=== PATIENT | male | born 1970 | race Caucasian/White ===

== ENCOUNTER 2019-09-29 00:42 | Outpatient (CLI) | payer OTHER, SELFPAY ==
[2019-09-29 16:39] LABS: SARS-CoV-2 RNA PCR Negative
== END 2019-09-29 00:43 | disposition home or self-care (01) ==
LOC: ANHCOVIDDT 00:42
PROVIDERS: PCP Family Medicine; Visit Provider Internal Medicine Gastroenterology
DX: Z01.812 Encounter for preprocedural laboratory examination (principal); Z20.828 Contact with and (suspected) exposure to other viral communicable diseases
CPT/HCPCS: 87635; C9803; U0003

== ENCOUNTER 2019-10-02 00:31 | Day surgery (SDC) | payer OTHER, SELFPAY ==
[2019-09-24 12:27] VITALS: BMI 32.2
[2019-10-02 07:18] VITALS: BP 151/100; PULSE 100; RESP 18; TEMP 37.2; O2SAT 95
[2019-10-02] MEDS: LACTATED RINGERS 1,000 ML 150 ML IV CONT (07:28)
--- NOTE | 2019-10-02 07:47 | WPDANESEPPF ---
Anes - Initial Pre Proc Eval Procedure: Operation Date: 10/02/19 08:30 Proposed Procedures p Screening Colonoscopy - Holden Prakash MD Date/Time: 10/02/19 07:47 Surgeon: Holden Prakash MD Pre Op Diagnosis: Neoplasm Screening Patient Data Age: 49 Gender: M Height: 6 ft 2 in Weight: 111.4 kg Last Vital Signs Temp 98.9 F 10/02/19 07:18 Pulse 100 10/02/19 07:18 Resp 18 10/02/19 07:18 BP 151/100 H 10/02/19 07:18 Pulse Ox 95 10/02/19 07:18 Allergies Allergy/AdvReac Type Severity Reaction Status Date / Time No Known Allergies Allergy Mild Verified 10/02/19 07:17 Home Medications Medication Instructions Recorded Confirmed Type losartan 100 mg tablet 100 mg PO DAILY #90 tablet 09/10/19 09/24/19 Rx amlodipine 5 mg tablet 5 mg PO DAILY #90 tablet 09/12/19 09/24/19 Rx peg 3350-electrolytes 236 240 ml PO Q10M #4000 ml 09/27/19 Rx gram-22.74 gram-6.74 gram-5.86 gram solution Patient hx anesthesia problems: none Family hx anesthesia problems: none PMFSH Past Medical History Medical History (Updated 10/02/19 @ 07:47 by Bert Martin MD) Essential hypertension Hyperlipidemia Family History Family History (Updated 11/21/15 @ 23:19 by DOCTOR UNKNOWN) Sibling Family history of suicide Mother Family history of diabetes mellitus in first degree relative Social History Social History Smoking status: Never smoker Alcohol intake: current Anes - Eval Final PreProcedure Day of Procedure 10/02/19 07:47 Patient weight: overweight Heart: regular rate and rhythm Lungs: clear to auscultation Airway: Mallampati scale class II Neurological: alert and oriented Last oral intake: >/= 8 hours ASA classification: II Emergent: no Anesthetic plan: proceed Anesthesia type and monitoring: general GIVS and standard monitoring Informed Consent: The patient's anesthetic plan and its attendant risks and benefits were discussed with the patient/family/POA. Questions were solicited and answers provided to the satisfaction of the patient/family/POA.
--- NOTE | 2019-10-02 08:31 | PM.HPGS ---
History of Present Illness History of Present Illness Consent: Risks, benefits, and alternatives have been discussed and questions answered. Patient agrees to proceed with procedure. Chief complaint: Neoplasm Screening Narrative: Praneeth Stevens Jr. is a 49 year old male her for colon cancer screening, had colonoscopy about 10 years ago, father with colon cancer. Review of Systems Constitutional: Constitutional: Denies headache(s) and Denies weakness Eyes: Eyes: Denies blurry vision ENT: Reports Normal hearing present, Denies headache(s) and Denies neck pain Cardiovascular: Cardiovascular: Denies chest pain and Denies dyspnea Respiratory: Respiratory: Denies dyspnea Gastrointestinal: Gastrointestinal: Reports no additional gastrointestinal complaints Genitourinary: Genitourinary: Denies dysuria Musculoskeletal: Musculoskeletal: Denies neck pain Integumentary/Breasts: Skin/Breast: Denies dry skin Neurologic: Reports Normal hearing present, Denies headache(s) and Denies weakness Psychiatric: Psychiatric: Denies anxiety Endocrine: Endocrine: Denies change in body appearance Hematologic/Lymphatic: Hematologic/Lymphatic: Denies easy bleeding Allergic/Immunologic: Allergic/Immunologic: Denies urticaria PMFSH Past Medical History Medical History (Updated 10/02/19 @ 08:31 by Holden Prakash MD) Essential hypertension Family history of colon cancer in father Hyperlipidemia Family History Family History (Updated 11/21/15 @ 23:19 by DOCTOR UNKNOWN) Sibling Family history of suicide Mother Family history of diabetes mellitus in first degree relative Social History Social History Smoking status: Never smoker Alcohol intake: current Meds Home Medications and Allergies Home Medications Medication Instructions Recorded Confirmed Type losartan 100 mg tablet 100 mg PO DAILY #90 tablet 09/10/19 09/24/19 Rx amlodipine 5 mg tablet 5 mg PO DAILY #90 tablet 09/12/19 09/24/19 Rx peg 3350-electrolytes 236 240 ml PO Q10M #4000 ml 09/27/19 Rx gram-22.74 gram-6.74 gram-5.86 gram solution Allergies Allergy/AdvReac Type Severity Reaction Status Date / Time No Known Allergies Allergy Mild Verified 10/02/19 07:17 Vital Signs Vital Signs - 24 hr 10/02/19 07:18 Temperature 98.9 F Pulse Rate 100 Respiratory Rate 18 Blood Pressure 151/100 H Pulse Oximetry 95 Exam Const: General: comfortable and no acute distress HENMT: General nose exam: Normal nares present Eyes: General: appearance normal, both eyes and all related structures Neck: Neck: no JVD Resp: Auscultation: clear to auscultation bilaterally Cardio: Rate: regular rate Rhythm: regular rhythm GI: Inspection: non-distended GI Palp: Yes Soft to palpation Skin: General skin exam: normal color Neuro: General: gait normal Speech: normal speech Extrem: General: normal to inspection Psych: Mental Status: mental status grossly normal Assessment and Plan Assessment and plan (1) Family history of colon cancer in father: Code(s): Z80.0 - Family history of malignant neoplasm of digestive organs Status: Acute Assessment and Plan: will proceed with colonoscopy (2) Essential hypertension: Code(s): I10 - Essential (primary) hypertension Status: Acute
[2019-10-02 09:02] VITALS: BP 106/76; PULSE 77; RESP 19; O2SAT 95
[2019-10-02 09:12] VITALS: BP 116/75; PULSE 78; RESP 14; O2SAT 95
[2019-10-02 09:22] VITALS: BP 117/76; PULSE 75; RESP 16; O2SAT 96
== END 2019-10-02 09:49 | disposition home or self-care (01) ==
PROVIDERS: PCP Family Medicine; Visit Provider Internal Medicine Gastroenterology
PROC: 0DJD8ZZ Inspection of Lower Intestinal Tract, Via Natural or Artificial Opening Endoscopic (ICD-10-PCS; CPT 45378; principal; 2019-10-02 08:30)
DX: Z12.11 Encounter for screening for malignant neoplasm of colon (principal); D12.0 Benign neoplasm of cecum; Z80.0 Family history of malignant neoplasm of digestive organs; E78.5 Hyperlipidemia, unspecified; K64.8 Other hemorrhoids; I10 Essential (primary) hypertension
CPT/HCPCS: 45380; 45385; 88305; J2704; J7120

== ENCOUNTER → 2021-02-06 09:05 | Outpatient (CLI) | payer OTHER, SELFPAY ==
--- NOTE | ~2021-02-06 | MR_ITS ---
EXAMINATION: MR shoulder RT wo con DATE: 02/06/2021 10:00 INDICATION: Right shoulder pain and weakness. TECHNIQUE: Magnetic resonance imaging (MRI) of the right shoulder was performed without intravenous c ontrast. Sequences included axial PD-weighted FS FSE, coronal oblique PD-weighted FS FSE, coronal obl ique T2-weighted FS FSE, sagittal PD-weighted FS FSE, and sagittal T1-weighted SE. COMPARISON: None. FINDINGS: Coracoacromial arch: The acromion undersurface is curved in morphology (type II). Coracoacromial ligament is normal. Prior distal right clavicle resection. [place] Rotator cuff: Mild supraspinatus and mild to moderate infraspinatus tendinopathy without discrete tear. The teres m inor and subscapularis tendons are normal. Normal rotator cuff muscle bulk and signal. Biceps tendon, glenoid labrum and glenohumeral cartilage: Long head of the biceps tendon is normal. Mild degenerative fraying along the free edge of the search lead ior superior glenoid labrum without a clearly defined tear. Glenohumeral cartilage is normal. Fluid: Physiologic amount of fluid in the glenohumeral joint and biceps tendon sheath. No loose osteochondra l bodies. Abnormal fluid signal in the subacromial/subdeltoid bursa to suggest bursitis. Bones: Normal marrow signal with no edema, fracture or abnormal marrow replacing process. Mild cystic change at the middle facet of the greater tuberosity likely related to the infraspinatus tendon disease. IMPRESSION: 1. Mild supraspinatus and mild to moderate infraspinatus tendinopathy without discrete tear. 2. Mild degenerative fraying along the free edge of the posterior superior glenoid labrum. Reviewed, dictated and finalized at location A. IMPRESSION: 1. Mild supraspinatus and mild to moderate infraspinatus tendinopathy without d iscrete tear. 2. Mild degenerative fraying along the free edge of the posterior superior audra oid labrum.
== END ==
PROVIDERS: Visit Provider Orthopaedic Surgery
DX: M25.511 Pain in right shoulder (principal); S46.011A Strain of muscle(s) and tendon(s) of the rotator cuff of right shoulder, initial encounter; S43.431A Superior glenoid labrum lesion of right shoulder, initial encounter
CPT/HCPCS: 73221

== ENCOUNTER 2022-12-24 03:29 | Day surgery (SDC) | payer OTHER, SELFPAY ==
[2022-12-10 15:08] VITALS: BMI 31.9
[2022-12-24 06:45] VITALS: BP 146/80; PULSE 75; RESP 20; TEMP 36.8; O2SAT 96
[2022-12-24] MEDS: LACTATED RINGERS 1,000 ML 150 ML IV CONT (06:59)
--- NOTE | 2022-12-24 07:55 | P.PNAN_ITS ---
Anes - Initial Pre Proc Eval Procedure: Operation Date: 12/24/22 08:00 Proposed Procedures p Colonoscopy - Holden Prakash MD Date/Time: 12/24/22 07:55 Surgeon: Holden Prakash MD Pre Op Diagnosis: hx colon polyps Patient Data Age: 52 Gender: M Height: 1.88 m Weight: 113.7 kg Last Vital Signs Temp 98.2 F 12/24/22 06:45 Pulse 75 12/24/22 06:45 Resp 20 12/24/22 06:45 BP 146/80 H 12/24/22 06:45 Pulse Ox 96 12/24/22 06:45 O2 Del Method Room Air 12/24/22 06:45 Allergies Allergy/AdvReac Type Severity Reaction Status Date / Time No Known Allergies Allergy Mild Verified 12/24/22 06:45 Home Medications Medication Instructions Recorded Confirmed Type amlodipine 10 mg tablet See Rx Instructions .Route 07/29/22 12/10/22 Rx .COMPLEX #90 tabs losartan 100 mg tablet 100 mg PO DAILY #90 tabs 11/23/22 12/10/22 Rx Patient hx anesthesia problems: none Family hx anesthesia problems: none Results Review: All pre-operative results and documents have been reviewed as part of the pre- operative evaluation. [facility] Past Medical History Medical History Colon polyps Essential hypertension Family history of colon cancer in father Hyperlipidemia Obesity Family History Family History Sibling Family history of suicide Mother Family history of diabetes mellitus in first degree relative Social History Social History (Updated 11/15/22 @ 08:57 by Jacey Marsh) Social History: Smoking status: Never smoker Second hand tobacco smoke exposure: No Alcohol intake: never Alcohol use details: Socially Substance use: never Substance use type: does not use Lack of Transportation: No Lack of Food: Never True Current Housing: I Have Housing Concerned About Future Housing: No Difficulty Paying Gas/Electric Bills: No Difficulty Paying for Meds: No Currently Unemployed: No Education: Decline to Answer Difficulty w/ Childcare or Family Care: No Living arrangements: with family Occupation/Education: occupation Gender identity (if verbalized by the patient): Male Sexual Orientation (if Verbalized by the Patient): Straight or Heterosexual Spiritual care concerns: No Anes - Eval Final PreProcedure Day of Procedure 12/24/22 07:55 Patient weight: obese Heart: regular rate and rhythm Lungs: clear to auscultation Airway: Mallampati scale class II Neurological: alert and oriented Last oral intake: >/= 8 hours ASA classification: II Emergent: no Anesthetic plan: proceed Anesthesia type and monitoring: general GIVS and standard monitoring Results Review: All pre-operative results and documents have been reviewed as part of the pre- operative evaluation. Informed Consent: The patient's anesthetic plan and its attendant risks and benefits were discussed with the patient/family/POA. Questions were solicited and answers provided to the satisfaction of the patient/family/POA.
--- NOTE | 2022-12-24 08:01 | PM.HPGS ---
History of Present Illness History of Present Illness Consent: Risks, benefits, and alternatives have been discussed and questions answered. Patient agrees to proceed with procedure. Chief complaint: hx colon polyps Narrative: Praneeth Stevens Jr. is a 52 year old male with colon polyps in 2019 Review of Systems Constitutional: Constitutional: Denies headache(s) and Denies weakness Eyes: Eyes: Denies blurry vision ENT: Reports Normal hearing present, Denies headache(s) and Denies neck pain Cardiovascular: Cardiovascular: Denies chest pain and Denies dyspnea Respiratory: Respiratory: Denies dyspnea Gastrointestinal: Gastrointestinal: Reports no additional gastrointestinal complaints Genitourinary: Genitourinary: Denies dysuria Musculoskeletal: Musculoskeletal: Denies neck pain Integumentary/Breasts: Skin/Breast: Denies dry skin Neurologic: Reports Normal hearing present, Denies headache(s) and Denies weakness Psychiatric: Psychiatric: Denies anxiety Endocrine: Endocrine: Denies change in body appearance Hematologic/Lymphatic: Hematologic/Lymphatic: Denies easy bleeding Allergic/Immunologic: Allergic/Immunologic: Denies urticaria PMFSH Past Medical History Medical History Colon polyps Essential hypertension Family history of colon cancer in father Hyperlipidemia Obesity Family History Family History Sibling Family history of suicide Mother Family history of diabetes mellitus in first degree relative Social History Social History (Updated 11/15/22 @ 08:57 by Jacey Marsh) Social History: Smoking status: Never smoker Second hand tobacco smoke exposure: No Alcohol intake: never Alcohol use details: Socially Substance use: never Substance use type: does not use Lack of Transportation: No Lack of Food: Never True Current Housing: I Have Housing Concerned About Future Housing: No Difficulty Paying Gas/Electric Bills: No Difficulty Paying for Meds: No Currently Unemployed: No Education: Decline to Answer Difficulty w/ Childcare or Family Care: No Living arrangements: with family Occupation/Education: occupation Gender identity (if verbalized by the patient): Male Sexual Orientation (if Verbalized by the Patient): Straight or Heterosexual Spiritual care concerns: No Meds Home Medications and Allergies Home Medications Medication Instructions Recorded Confirmed Type amlodipine 10 mg tablet See Rx Instructions .Route 07/29/22 12/10/22 Rx .COMPLEX #90 tabs losartan 100 mg tablet 100 mg PO DAILY #90 tabs 11/23/22 12/10/22 Rx Allergies Allergy/AdvReac Type Severity Reaction Status Date / Time No Known Allergies Allergy Mild Verified 12/24/22 06:45 Vital Signs Vital Signs - 24 hr 12/24/22 06:45 Temperature 98.2 F Pulse Rate 75 Respiratory Rate 20 Blood Pressure 146/80 H Pulse Oximetry 96 Oxygen Delivery Room Air Exam Const: General: comfortable and no acute distress HENMT: Face/Nose/Sinus: Normal nares present Eyes: General: appearance normal, both eyes and all related structures Neck: Neck: no JVD Resp: Auscultation: clear to auscultation bilaterally Cardio: Rate: regular rate Rhythm: regular rhythm GI: Inspection: non-distended GI Palp: Yes Soft to palpation Skin: General skin exam: normal color Neuro: General: gait normal Speech: normal speech Extrem: General: normal to inspection Psych: Mental Status: mental status grossly normal Assessment and Plan Assessment and plan (1) Colon polyps: Code(s): K63.5 - Polyp of colon Status: Acute Assessment and Plan: colonoscopy
[2022-12-24 08:27] VITALS: BP 115/69; PULSE 67; RESP 25; O2SAT 95
[2022-12-24 08:37] VITALS: BP 114/60; PULSE 66; RESP 15; O2SAT 95
[2022-12-24 08:47] VITALS: BP 119/69; PULSE 66; RESP 20; O2SAT 96
== END 2022-12-24 08:51 | disposition home or self-care (01) ==
PROVIDERS: PCP Family Medicine; Visit Provider Internal Medicine Gastroenterology
PROC: 0DJD8ZZ Inspection of Lower Intestinal Tract, Via Natural or Artificial Opening Endoscopic (ICD-10-PCS; CPT 45378; principal; 2022-12-24 08:00)
DX: Z12.11 Encounter for screening for malignant neoplasm of colon (principal); D12.0 Benign neoplasm of cecum; D12.3 Benign neoplasm of transverse colon; K63.5 Polyp of colon; K57.30 Diverticulosis of large intestine without perforation or abscess without bleeding; K64.8 Other hemorrhoids; I10 Essential (primary) hypertension; E78.5 Hyperlipidemia, unspecified; Z80.0 Family history of malignant neoplasm of digestive organs; E66.9 Obesity, unspecified; Z68.32 Body mass index [BMI] 32.0-32.9, adult
CPT/HCPCS: 45380; 45385; 88305; J2704; J7120

== ENCOUNTER 2023-07-28 08:11 | Outpatient (CLI) | payer OTHER, SELFPAY ==
--- NOTE | ~2023-07-28 | US_ITS ---
Limited Abdominal Sonogram: Real-time sonographic imaging of the right upper quadrant was performed. Clinical History: Epigastric pain Findings: The liver appears echogenic, with no evidence of mass lesion or bile duct dilatation. Main portal vein demonstrates normal direction of flow. The gallbladder is well distended, and appears no rmal with no evidence of gallstone or wall thickening. The common bile duct measures 4 mm. The visua lized pancreas, aorta, and IVC are unremarkable. Right kidney measures 12.2 cm in length, without hyd ronephrosis. Impression: Diffuse fatty infiltration of liver. Reviewed, dictated and finalized at location M. Impression: Diffuse fatty infiltration of liver.
== END 2023-07-28 08:12 ==
LOC: MICIMG 08:13
PROVIDERS: PCP Surgery; Visit Provider Surgery
DX: R10.13 Epigastric pain (principal); K76.0 Fatty (change of) liver, not elsewhere classified
CPT/HCPCS: 76705

== ENCOUNTER 2023-08-18 12:51 | Outpatient (CLI) | payer OTHER, SELFPAY ==
--- NOTE | 2023-08-18 13:03 | ECG_ITS ---
SEE SCANNED COPY FOR CONFIRMED REPORT MTDD
== END 2023-08-18 12:52 | disposition home or self-care (01) ==
LOC: ANHSURGERY 12:55
PROVIDERS: PCP Family Medicine; Visit Provider Surgery
DX: Z01.818 Encounter for other preprocedural examination (principal); I10 Essential (primary) hypertension; K42.9 Umbilical hernia without obstruction or gangrene
CPT/HCPCS: 36415; 86850; 86900; 86901; 93005

== ENCOUNTER 2023-08-24 01:09 | Day surgery (SDC) | payer OTHER, SELFPAY ==
[2023-08-15 14:19] VITALS: BMI 33.7
--- NOTE | 2023-08-15 14:40 | SUR.PREOP ---
Report to the Outpatient Waiting Room, entrance under the green pavilion located off [facility], at time 0800 on date 08/24/2023. Planned Procedure Time: 1000. Time changes happen often and if your time is changed the preop area will call you the afternoon before. - You and your visitor will be asked to self-screen and do not enter if you have any COVID symptoms. - A mask is optional within the hospital at this time. Patients may have clear liquids (water, carbonated beverages, clear teas, apple juice) until 3 hours prior to surgery with a maximum of 20 ounces- 0700. - No food from midnight until time of surgery - Infants may have breast milk until 4 hours before surgery, infant formula 6 hours prior to surgery. - Children will be allowed to drink immediately following surgery. If applicable, please bring a bottle or sippy cup to assist with drinking. Juice, water, soda, and popsicles are readily available. For infants on formula, please bring formula the day of surgery. Pacifiers are allowed. Take the following medications with a SIP of water the morning of surgery: Norvasc DO NOT STOP ANY OF YOUR OTHER PRESCRIPTION MEDICATIONS PRIOR TO SURGERY ?EXCEPT THE FOLLOWING Medications to discontinue per physician N/A Please no make-up, nail [place], hairspray, perfume, deodorant, or body powder the day of surgery. No jewelry (including any body piercings) or valuables the day of surgery, leave them at home. Please take a shower or bath the night before, or the morning of, surgery with an antibacterial soap. Wear comfortable, loose fitting clothing. Children are encouraged to wear pajamas. - Jewelry must be removed prior to entering the operating room. Rings and piercings that are not removed may be cut off. - The hospital will not accept responsibility for valuables. - Please leave all valuables, including medications, at home the day of surgery. If you are going home after surgery, a licensed bulk truck driver must drive you home. - NO public transportation without another adult if you receive anesthesia. - We recommend that an adult stay with you for 24 hours following discharge. - We also recommend that you do not drive, make important decision, drink alcoholic beverages, or take any drugs that were not prescribed by your health care provider for at least 24 hours after your discharge time. For Pediatric surgeries, we recommend two adults accompany the child home. Follow any additional instructions given to you from your surgeon. If you or anyone in your household have experienced Covid symptoms in the past week, please notify your surgeon or the nurse liaison at the phone number below for possible testing. Telephone instructions given to Gary and asked if any additional questions and then verbalized understanding. Patient advised to call surgeon office or pre surgery nurse liaison [phone] if any additional questions.
[2023-08-24] VITALS (9 sets, daily range): BP systolic 142–169; BP diastolic 72–90; PULSE 67–81; RESP 12–18; TEMP 36.5; O2SAT 95–100
[2023-08-24] MEDS: LACTATED RINGERS 1,000 ML 30 ML IV CONT (09:00)
--- NOTE | 2023-08-24 09:25 | P.PNAN_ITS ---
Anes - Initial Pre Proc Eval Procedure: Operation Date: 08/24/23 10:00 Proposed Procedures p Laparoscopic Umbilical Hernia Repair with Mesh, Davinci Assisted - Chetan Romero DO Date/Time: 08/24/23 09:25 Surgeon: Chetan Romero DO Pre Op Diagnosis: Umb Hernia (2cm) Patient Data Age: 53 Gender: M Height: 1.85 m Weight: 115.9 kg Allergies Allergy/AdvReac Type Severity Reaction Status Date / Time No Known Allergies Allergy Mild Verified 08/15/23 14:18 Home Medications Medication Instructions Recorded Confirmed Type amlodipine 10 mg tablet See Rx Instructions .Route 02/14/23 08/15/23 Rx .COMPLEX #90 tabs losartan 100 mg tablet 100 mg PO DAILY #90 tabs 08/10/23 08/15/23 Rx Patient hx anesthesia problems: none Family hx anesthesia problems: none Results Review: All pre-operative results and documents have been reviewed as part of the pre- operative evaluation. [facility] Past Medical History Medical History (Updated 08/24/23 @ 09:25 by Mushtaq Clements MD) Colon polyps Essential hypertension Family history of colon cancer in father Hyperlipidemia Obesity OMAR (obstructive sleep apnea) Surgical History Surgical History H/O excision of mass cyst excised from left foot H/O shoulder surgery History of appendectomy Family History Family History Sibling Family history of suicide Mother Family history of diabetes mellitus in first degree relative Social History Social History Social History: Smoking status: Never smoker Second hand tobacco smoke exposure: No Alcohol intake: current Drinks per week: 1 Alcohol use details: socially Substance use: never Substance use type: does not use Lack of Transportation: No Lack of Food: Never True Current Housing: I Have Housing Concerned About Future Housing: No Difficulty Paying Gas/Electric Bills: No Difficulty Paying for Meds: No Currently Unemployed: No Education: Decline to Answer Difficulty w/ Childcare or Family Care: No Living arrangements: with family Occupation/Education: occupation Additional occupation/education comments: [employer] Gender identity (if verbalized by the patient): Male Sexual Orientation (if Verbalized by the Patient): Straight or Heterosexual Spiritual care concerns: No Anes - Eval Final PreProcedure Day of Procedure 08/24/23 09:25 Patient weight: obese Heart: regular rate and rhythm Lungs: clear to auscultation Airway: Mallampati scale class II Neurological: alert and oriented Last oral intake: >/= 8 hours ASA classification: III Emergent: no Anesthetic plan: proceed Anesthesia type and monitoring: general ETT and standard monitoring Results Review: All pre-operative results and documents have been reviewed as part of the pre- operative evaluation. Informed Consent: The patient's anesthetic plan and its attendant risks and benefits were discussed with the patient/family/POA. Questions were solicited and answers provided to the satisfaction of the patient/family/POA.
[2023-08-24] MEDS: KETOROLAC 15 MG/ML VIAL (*BKC) IV PUSH (09:36)
[2023-08-24] MEDS: ACETAMINOPHEN 500 MG TABLET 1000 MG PO (09:36)
--- NOTE | 2023-08-24 09:36 | WPDHPUPDATE1 ---
History and Physical Update Update Date/Time: 08/24/23 09:36 History and Physical has been reviewed, including an updated exam of the patient. There are NO changes in the patient's condition. Risks, benefits, and alternatives have been discussed and questions answered. Patient agrees to proceed with procedure.
[2023-08-24] MEDS: ceFAZolin 2 GM/D5W 50 ML 2 GM/50 ML BAG IVPB (09:54)
[2023-08-24] MEDS: BUPIVACAINE/EPINEPHRINE 0.5% 50 ML VIAL 30 ML INFILTRATE (10:20)
--- NOTE | 2023-08-24 11:16 | W.PM.PROC2 ---
Procedure Note - Detailed Date of Procedure 08/24/23 Pre-op Diagnosis Umbilical Hernia Post-op Diagnosis Other (4 cm Ventral and umbilical hernias) Procedure Performed Laparoscopic 4 cm ventral and umbilical hernia repair with mesh, da Sina assisted Surgeon Chetan Romero, DO Anesthesia General and Local (0.5% bupivacaine with epinephrine) Indications This is a 53-year-old man who presented with an umbilical hernia. He was noted to have an umbilical bulge that caused some occasional discomfort. He had noticed this just a couple months ago after having a stomach virus. The area is occasionally tender to touch. He was found to have a 1-2 cm umbilical hernia on physical exam. Discussions were made with the patient about treatment options and decision was made to proceed with robotic assisted laparoscopic umbilical hernia repair with mesh. Findings Upon inspecting the abdomen laparoscopically, patient was actually found to have a ventral and umbilical hernia. The umbilical hernia was only measuring about 1.5 cm and there was another ventral hernia measuring 1 cm just superior to the umbilical hernia. The total distance between the most cephalad edge and most caudad edge of the 2 hernias was 4 cm. The hernias were containing preperitoneal fat. The preperitoneal fat was excised from the hernia defect along with the hernia sac and the surrounding preperitoneal fat around the fascia. A robotic intraperitoneal onlay mesh technique was then utilized for repair. The fascial edges were brought together at the 2 hernias using 0 Stratafix running absorbable suture. A Ventralight ST 15 cm x 10 cm mesh was then placed and secured to the abdominal wall circumferentially using 2-0 Stratafix running absorbable suture. No specimens were obtained for pathology. Description of Procedure Procedure as well as risks, benefits, and alternatives were discussed with the patient. Written consent was obtained and placed in chart prior to procedure. Patient was brought back to surgical suite. He was placed supine on operating table. Time-out was done to confirm patient and procedure. He was then intubated by the anesthesia department. A bump was placed under his left hip, and the bed was flexed slightly to extend the space between his costal margin and iliac crest. His abdomen was prepped and draped in sterile fashion using chlorhexidine prep. A 5 millimeter incision was made in the left upper quadrant, and a 5 millimeter Optiview trocar was advanced through the abdominal layers under direct visualization. Once inside the abdominal cavity, carbon dioxide insufflation was used to create a pneumoperitoneum. His abdomen was inspected. An 8 millimeter incision was made in the left lower quadrant, and an 8 millimeter robotic trocar was placed under direct visualization. Another 8 millimeter incision was made in the left lateral abdomen, and an 8 millimeter robotic trocar was placed under direct visualization. 0.5% bupivacaine with epinephrine was infiltrated around each port site. The 5 millimeter port was removed, and an 8 mm robotic trocar was placed under direct visualization. The robotic arms were brought up to the patient's bedside and secured to the ports. The camera and instruments were inserted, and I then moved over to the robotic console and took control of the camera and instruments. After careful thorough inspection of the abdominal cavity, I began my dissection at the hernia. The preperitoneal fat and umbilical hernia sac was excised using scissors with electrocautery. I then also identified a ventral hernia just cephalad to the umbilical hernia and the preperitoneal fat and hernia sac was also excised around this area using scissors with electrocautery. I then measured the hernia size. The umbilical hernia measured 1.5 cm and the ventral hernia measured 1 cm. The total distance between the cephalad edge of the ventral hernia and the caudad edge of the umbilical h
[2023-08-24] MEDS: ONDANSETRON INJ 4 MG/2 ML VIAL IV PUSH (12:31)
[2023-08-24] MEDS: oxyCODONE HCL (*CRX) 5 MG TAB IR PO (12:52)
== END 2023-08-24 13:34 | disposition home or self-care (01) ==
PROVIDERS: PCP Family Medicine; Visit Provider Surgery
PROC: (CPT 49593; principal; 2023-08-24 10:00)
DX: K42.9 Umbilical hernia without obstruction or gangrene (principal); K43.9 Ventral hernia without obstruction or gangrene; I10 Essential (primary) hypertension; E78.5 Hyperlipidemia, unspecified; G47.33 Obstructive sleep apnea (adult) (pediatric); E66.9 Obesity, unspecified; Z68.33 Body mass index [BMI] 33.0-33.9, adult
CPT/HCPCS: 49593; S2900; A9270; C1781; J0330; J0690; J1100; J1170; J1885; J2250; J2405; J2704; J3010; J7120

== ENCOUNTER 2024-02-29 11:45 | Outpatient (CLI) | payer OTHER, SELFPAY ==
[2024-02-29 12:37] LABS: Alanine Aminotransferase 33 U/L (6-50); Aspartate Amino Transferase 23 U/L (17-59)
== END 2024-02-29 11:46 | disposition home or self-care (01) ==
PROVIDERS: PCP Family Medicine; Visit Provider Podiatrist Foot & Ankle Surgery
DX: B35.1 Tinea unguium (principal)
CPT/HCPCS: 36415; 84450; 84460

== ENCOUNTER 2024-03-09 05:36 | Day surgery (SDC) | payer OTHER, SELFPAY ==
[2024-03-02 10:16] VITALS: BMI 33.0
--- NOTE | 2024-03-02 10:39 | PC.NURSE ---
Report to the Outpatient Waiting Room, entrance under the green pavilion located off [facility], at 1100 on 03-09-24. Planned Procedure Time: 1300.? Time changes happen often and if your time is changed the preop area will call you the afternoon before. - You and your visitor will be asked to self-screen and do not enter if you have any COVID symptoms. Please call surgeon if you need to reschedule. - A mask is optional within the hospital at this time. Patients may have clear liquids (water, carbonated beverages, clear teas, apple juice) until 3 hours prior to surgery with a maximum of 20 ounces. (1000) - No food from midnight until time of surgery and no smoking - Infants may have breast milk until 4 hours before surgery, infant formula 6 hours prior to surgery. - Children will be allowed to drink immediately following surgery.? If applicable, please bring a bottle or sippy cup to assist with drinking. Juice, water, soda, and popsicles are readily available.? For infants on formula, please bring formula the day of surgery.? Pacifiers are allowed. Take only the following medications with a SIP of water on the morning of surgery: amlodipine DO NOT STOP ANY OF YOUR OTHER PRESCRIPTION MEDICATIONS PRIOR TO SURGERY EXCEPT THE FOLLOWING Medications to discontinue per physician: N/A Please no make-up, nail french, hairspray, perfume, deodorant, or body powder the day of surgery.? No jewelry (including any body piercings) or valuables the day of surgery, leave them at home.? Please take a shower or bath the night before, or the morning of, surgery with an antibacterial soap.? Wear comfortable, loose fitting clothing.? Children are encouraged to wear pajamas. - Jewelry must be removed prior to entering the operating room.? Rings and piercings that are not removed may be cut off. - The hospital will not accept responsibility for valuables.? - Please leave all valuables, including medications, at home the day of surgery. If you are going home after surgery, a licensed flatbed driver must drive you home.? - NO public transportation without another adult if you receive anesthesia. - We recommend that an adult stay with you for 24 hours following discharge. - We also recommend that you do not drive, make important decision, drink alcoholic beverages, or take any drugs that were not prescribed by your health care provider for at least 24 hours after your discharge time. For Pediatric surgeries, we recommend two adults accompany the child home. Follow any additional instructions given to you from your surgeon. Telephone instructions given to Praneeth Stevens Jr. and asked if any additional questions and then verbalized understanding. Patient advised to call surgeon office or pre surgery nurse liaison [phone] if any additional questions.
--- NOTE | 2024-03-09 11:14 | P.HP_ITS ---
H&P: HPI History of Present Illness Date/Time: 03/09/24 11:14 Chief Complaint: back mass x 2 Narrative: 53 yo man presents for excision of 2 back masses. One is 6cm in the upper mid back and one is 5cm in the mid left back. He reports no changes since last seen in office. Review of Systems Review of Systems: All systems reviewed & are unremarkable except as noted in HPI and below Constitutional: Constitutional: Denies chills, Denies fever(s), Denies headache(s) and Denies weight loss Eyes: Eyes: Denies change in vision ENT: Denies dizziness, Denies headache(s), Denies neck mass and Denies throat swelling Cardiovascular: Cardiovascular: Denies chest pain, Denies lightheadedness and Denies dyspnea Respiratory: Respiratory: Denies cough, Denies dyspnea and Denies wheezing Gastrointestinal: Gastrointestinal: Denies abdominal pain, Denies change in bowel habits, Denies nausea and Denies vomiting Genitourinary: Genitourinary: Denies hematuria and Denies dysuria Musculoskeletal: Musculoskeletal: Reports as per HPI Integumentary/Breasts: Skin/Breast: Reports as per HPI Neurologic: Denies dizziness and Denies headache(s) Allergic/Immunologic: Allergic/Immunologic: Denies throat swelling and Denies wheezing COUNT INCLUDES THE [facility] Past Medical History Medical History Colon polyps Essential hypertension Family history of colon cancer in father Hyperlipidemia Obesity OMAR (obstructive sleep apnea) Surgical History Surgical History H/O excision of mass cyst excised from left foot H/O shoulder surgery History of appendectomy History of umbilical hernia repair Laparoscopic 4 cm ventral and umbilical hernia repair with mesh, da Sina assisted 08/24/23 Family History Family History Sibling Family history of suicide Mother Family history of diabetes mellitus in first degree relative Social History Social History Social History: Smoking status: Never smoker Second hand tobacco smoke exposure: No Alcohol intake: current Drinks per week: 1 Alcohol use details: socially 1-2 times a month Substance use: never Substance use type: does not use Do You Feel Safe in your Home?: Yes Lack of Transportation: No Lack of Food: Never True Current Housing: I Have Housing Concerned About Future Housing: No Difficulty Paying Gas/Electric Bills: No Difficulty Paying for Meds: No Currently Unemployed: No Education: Master's Degree or Higher Difficulty w/ Childcare or Family Care: No Living arrangements: with family Occupation/Education: occupation Additional occupation/education comments: [employer] Gender identity (if verbalized by the patient): Male Sexual Orientation (if Verbalized by the Patient): Straight or Heterosexual Spiritual care concerns: No Meds Home Medications and Allergies Home Medications Medication Instructions Recorded Confirmed Type losartan 100 mg tablet 100 mg PO DAILY #90 tabs 08/10/23 03/02/24 Rx amlodipine 10 mg tablet See Rx Instructions .Route 11/10/23 03/02/24 Rx .COMPLEX #90 tabs Allergies Allergy/AdvReac Type Severity Reaction Status Date / Time No Known Allergies Allergy Mild Verified 03/02/24 10:12 Exam Const: General: no acute distress and alert Orientation/consciousness: patient oriented x3 HENMT: Head: normocephalic and atraumatic Ears: hearing grossly normal bilaterally Face/Nose/Sinus: Normal nares present Mouth: Yes Normal oral and palatal mucosa present Eyes: Periorbital: periorbital findings normal Sclera: sclerae normal EOM: EOMs intact bilaterally Neck: Neck: normal visual inspection, no lymphadenopathy and trachea midline Chest: Chest palpation & inspection: normal inspection of the chest Resp: Effort & Inspection: normal respiratory effort Auscultation: clear to auscultation bilaterally Cardio: Jugular venous distension: no JVD Rate: regular rate Rhythm: regular rhythm Heart sounds: S1 normal heart sound present and S2 normal heart sound present Peripheral pulses: Peripheral pulses 2+ throughout GI: Inspection: normal to inspection GI Palp: Yes Soft to palpation, No Tenderness to palpation present (GI), No Guarding due to palpation present (GI) and No Rebound tenderness present Percussion: Yes normal to percussion Auscultation: normal bowel sounds : General: Yes no CVA tenderness Back/Spine/Pelvis: Back: no CVA tenderness Skin: Other: 6cm and 5cm back masses Neuro: General: patient oriented x3, no focal motor deficits and CN's II-XI intact bilaterally Cognition (Neuro): normal cognition Speech: normal speech Motor exam (neuro): 5 motor strength present throughout Extrem: General: capillary refill normal and no clubbing, cyanosis or edema Assessment and Plan Assessment and plan (1) Mass on back: Code(s): R22.2 - Localized swelling, mass and lump, trunk Status: Acute Assessment and Plan: I have recommended excision of 6 cm and 5 cm back masses. I have discussed the procedure, risks, benefits, and alternatives with the patient. All questions answered. No changes since last seen in office.
--- NOTE | 2024-03-09 11:14 | WPDHPUPDATE1 ---
History and Physical Update Update Date/Time: 03/09/24 11:14 History and Physical has been reviewed, including an updated exam of the patient. There are NO changes in the patient's condition. Risks, benefits, and alternatives have been discussed and questions answered. Patient agrees to proceed with procedure.
[2024-03-09 11:51] VITALS: BP 143/77; PULSE 73; RESP 18; TEMP 36.8; O2SAT 97
--- NOTE | 2024-03-09 12:30 | P.PNAN_ITS ---
Anes - Initial Pre Proc Eval Procedure: Operation Date: 03/09/24 13:00 Proposed Procedures p Excision Two Back Masses - Chetan Romero DO Date/Time: 03/09/24 12:30 Surgeon: Chetan Romero DO Pre Op Diagnosis: Back masses (1 6cm, 1 5cm) Patient Data Age: 53 Gender: M Height: 1.85 m Weight: 111.1 kg Last Vital Signs Temp 36.8 C 03/09/24 11:51 Pulse 73 03/09/24 11:51 Resp 18 03/09/24 11:51 BP 143/77 H 03/09/24 11:51 Pulse Ox 97 03/09/24 11:51 O2 Del Method Room Air 03/09/24 11:51 Allergies Allergy/AdvReac Type Severity Reaction Status Date / Time No Known Allergies Allergy Mild Verified 03/09/24 11:50 Home Medications Medication Instructions Recorded Confirmed Type losartan 100 mg tablet 100 mg PO DAILY #90 tabs 08/10/23 03/09/24 Rx amlodipine 10 mg tablet See Rx Instructions .Route 11/10/23 03/09/24 Rx .COMPLEX #90 tabs Patient hx anesthesia problems: none Family hx anesthesia problems: none Results Review: All pre-operative results and documents have been reviewed as part of the pre- operative evaluation. [facility] Past Medical History Medical History Colon polyps Essential hypertension Family history of colon cancer in father Hyperlipidemia Obesity OMAR (obstructive sleep apnea) Surgical History Surgical History H/O excision of mass cyst excised from left foot H/O shoulder surgery History of appendectomy History of umbilical hernia repair Laparoscopic 4 cm ventral and umbilical hernia repair with mesh, da Sina assisted 08/24/23 Family History Family History Sibling Family history of suicide Mother Family history of diabetes mellitus in first degree relative Social History Social History Social History: Smoking status: Never smoker Second hand tobacco smoke exposure: No Alcohol intake: current Drinks per week: 1 Alcohol use details: socially 1-2 times a month Substance use: never Substance use type: does not use Do You Feel Safe in your Home?: Yes Lack of Transportation: No Lack of Food: Never True Current Housing: I Have Housing Concerned About Future Housing: No Difficulty Paying Gas/Electric Bills: No Difficulty Paying for Meds: No Currently Unemployed: No Education: Master's Degree or Higher Difficulty w/ Childcare or Family Care: No Living arrangements: with family Occupation/Education: occupation Additional occupation/education comments: [employer] Gender identity (if verbalized by the patient): Male Sexual Orientation (if Verbalized by the Patient): Straight or Heterosexual Spiritual care concerns: No Anes - Eval Final PreProcedure Day of Procedure 03/09/24 12:30 Patient weight: obese Heart: regular rate and rhythm Lungs: clear to auscultation Airway: Mallampati scale class III and special considerations retrognathia Neurological: alert and oriented Last oral intake: >/= 8 hours ASA classification: III Emergent: no Anesthetic plan: proceed Anesthesia type and monitoring: general GIVS and standard monitoring Results Review: All pre-operative results and documents have been reviewed as part of the pre- operative evaluation. Informed Consent: The patient's anesthetic plan and its attendant risks and benefits were disc ussed with the patient/family/POA. Questions were solicited and answers provided to the satisfaction of the patient/family/POA.
[2024-03-09] MEDS: LIDO 1%/EPINEPHRINE 1:100,000 50 ML VIAL INFILTRATE (13:31)
--- NOTE | 2024-03-09 14:01 | W.PM.PROC2 ---
Procedure Note - Detailed Date of Procedure 03/09/24 Pre-op Diagnosis Back masses (6cm and 5cm) Post-op Diagnosis Same Procedure Performed 1. Excision of 6 cm upper back mass 2. Excision of 5 cm left mid back mass Surgeon Chetan Romero, DO Anesthesia MAC and Local ( 1% lidocaine with epinephrine) Indications this is a 53-year-old man who presented with 2 back masses. He was noted to have 1 back mass in the upper midline region near the base of his neck and another back mass in the left mid back region. Both were causing some discomfort and had gradually increased in size over time. Discussions were made with the patient about treatment options and decision was made to proceed with excision 6 cm and 5 cm back masses. Findings Excisions of 6 cm and 5 cm back masses were performed. The upper midline back mass was just beyond the base of the neck. This appeared to be a subcutaneous lipoma. It was completely excised and sent to the lab for pathology. The left midback mass was also a subcutaneous lipoma. It was completely excised and sent to the lab for pathology. No other abnormal findings were noted. Description of Procedure Procedure as well as risks, benefits, and alternatives were discussed with the patient. Written consent was obtained and placed in chart prior to procedure. Patient was brought back to surgical suite. He was placed in right lateral decubitus position. Time-out was done to confirm patient and procedure. IV sedation was then administered by the anesthesia department. His back area was prepped and draped in sterile fashion using chlorhexidine prep. 1% lidocaine with epinephrine was infiltrated locally over each back mass. A 6 cm transverse incision was then made over the upper midline back mass using a 15 blade scalpel. Electrocautery was used for hemostasis and for dissection through the subcutaneous tissue. The back mass was encountered and the subcutaneous attachments were carefully freed up using electrocautery. The back mass was completely excised and sent to the lab for pathology. The wound bed was then inspected. Hemostasis was achieved with electrocautery. The area was then irrigated with sterile saline. No other abnormalities were noted. The skin of the incision was then reapproximated using 3-0 nylon vertical mattress interrupted sutures. I then moved my attention to the left mid back mass. A 5 cm transverse incision was made over this back mass using a 15 blade scalpel. Electrocautery was then used for hemostasis and for dissection through the subcutaneous tissue. The mass was encountered and carefully freed up from the surrounding subcutaneous attachments using electrocautery. The mass was completely excised and sent to the lab for pathology. The wound bed was then inspected. Hemostasis was achieved with electrocautery. No other abnormalities were noted. The skin edges were then reapproximated using 3-0 nylon vertical mattress interrupted sutures. Bacitracin ointment was then applied over each incision followed by 4 x 4 gauze and Medipore tape. The patient was then awakened from anesthesia and transferred to recovery. Estimated Blood Loss 10 Pathology Yes (upper back mass, left mid back mass) Complications No immediate complications Condition Stable Disposition Same day [facility] Billing Surgery - Charge Forward: Surgery Billing
[2024-03-09 14:07] VITALS: BP 125/70; PULSE 76; RESP 12; O2SAT 97
[2024-03-09] MEDS: LACTATED RINGERS 1,000 ML 30 ML IV CONT (14:07)
[2024-03-09 14:30] VITALS: BP 131/81; PULSE 62; RESP 16; O2SAT 97
[2024-03-09 14:55] VITALS: BP 129/79; PULSE 62; RESP 16
== END 2024-03-09 15:07 | disposition home or self-care (01) ==
PROVIDERS: PCP Family Medicine; Visit Provider Surgery
PROC: (CPT 21931; principal; 2024-03-09 13:00)
DX: D17.1 Benign lipomatous neoplasm of skin and subcutaneous tissue of trunk (principal); I10 Essential (primary) hypertension; E66.9 Obesity, unspecified; Z68.32 Body mass index [BMI] 32.0-32.9, adult
CPT/HCPCS: 21931 ×2; 88304; A9270; J2003; J2004; J2250; J2405; J2704; J3010; J7120

== ENCOUNTER 2025-03-28 13:30 | Outpatient (RCR) | payer OTHER, SELFPAY ==
--- NOTE | 2025-02-13 11:39 | OPREHPOC ---
Outpatient Therapy Plan of Care This is a Multidisciplinary Plan of Care that may contain components documented by all disciplines (PT, OT, and ST.) PT Problem 1 PT Problem #1 Knowledge Deficit PT Goal 1 Goal / Goal Update *independent with HEP Target Visit 8 PT Problem 2 PT Problem #2 Pain PT Goal 1 Goal / Goal Update 1* pt report pain rating of 5/10 at worst 2* pt report times of NO pain in shoulder 3* pt report with sleeping, awaken 1x/night due to pain Target Visit 8 PT Problem 3 PT Problem #3 Impaired Range of Motion PT Goal 1 Goal / Goal Update Increase shoulder flexion ROM to improve ability to reach overhead for self care and home tasks: * active shoulder flexion to 140' Target Visit 8 PT Problem 4 PT Problem #4 Impaired Strength PT Goal 1 Goal / Goal Update increase strength of L shoulder to 4+/5, to improve use of L arm and posture/position of shoulder joint Target Visit 8
--- NOTE | 2025-02-13 11:39 | PTOPEVAL1 ---
Assessment and note entered by Laine Simon, PT Evaluation Information Assessment Status Evaluation ICD-10 Condition Codes (PT) Pain in left shoulder M25.512 Onset November 2024 Subjective Information was working out, using dumb bells and shoulder presses, felt crunch and pain in shoulder; had injection with slight relief for few days; had xray of shoulder, report not in EMR history: bilateral shoulder rotator cuff surgery R hand dominant; due to pain is no longer doing fitness exercises or reaching overhead activity: adoption for [employer], all computer work; Reported Pain Level Pain Score Self Report Additional Pain Score Comments pain range in the past week 3-9/10; ache and hurts , sharp when it hits and move wrong; to elbow increase pain: turning wheel when driving; lift overhead decrease pain: rest, tylenol, have prescription med from dr, not sure if helping or not; have not used heat/ice instruct on PRN use 10-15 minutes with sleeping, awaken 2x/night due to pain Assessment PT Clinical Summary Praneeth has the diagnosis of L shoulder tendinitis. Onset of pain after doing resistance exercises. Self assessment with Quick DASH rating of 45% limitation in activity level. He is R hand dominant. Overhead lifting, fitness activity and sleeping are disrupted due to pain. His job is an office job with computer work. History includes bilateral rotator cuff surgery. With the evaluation: decreased ROM of shoulder flexion and abduction motions, with decreased strength of shoulder due to pain; rounded shoulder posture; pain over anterior, lateral and posterior shoulder joint. Skilled PT services are indicated for modalities to decrease pain, therapeutic exercises to increase ROM and strength and education for HEP and posture/body mechanics. Plan of Care Interventions Electrical Stimulation,Hot Pack/Cold Pack,Manual Therapy,Neuro Re-education,Patient/Caregiver Education,Therapeutic Activities,Therapeutic Exercise,Ultrasound,Other Other Interventions taping PT Services Indicated Yes Treatment Frequency and 1-2x/wk for 8 visits Duration These treatments will address the objective and functional deficits as defined above. The patient will be advanced safely and appropriately in order for the patient to progress towards his/her prior level of function. Additional exercises will be introduced and as well as a comprehensive home exercise program upon discharge, if needed, ?to ensure carryover of functional gains achieved in the clinic. This treatment plan has been reviewed and agreement upon by the patient.
--- NOTE | 2025-03-28 14:21 | OPREHPOC ---
Outpatient Therapy Plan of Care This is a Multidisciplinary Plan of Care that may contain components documented by all disciplines (PT, OT, and ST.) PT Problem 1 PT Problem #1 Knowledge Deficit PT Goal 1 Goal / Goal Update *independent with HEP 03-28-25 d/c goal met Target Visit 8 Progress Met PT Problem 2 PT Problem #2 Pain PT Goal 1 Goal / Goal Update 1* pt report pain rating of 5/10 at worst 2* pt report times of NO pain in shoulder 3* pt report with sleeping, awaken 1x/night due to pain 03-28-25 d/c goals not met; pain rating of 4-8/10 and awaken 2 -3x/night Target Visit 8 Progress Not Met PT Problem 3 PT Problem #3 Impaired Range of Motion PT Goal 1 Goal / Goal Update Increase shoulder flexion ROM to improve ability to reach overhead for self care and home tasks: * active shoulder flexion to 140' 03-28-25 d/c goal not met, improved to 130' Target Visit 8 PT Problem 4 PT Problem #4 Impaired Strength PT Goal 1 Goal / Goal Update increase strength of L shoulder to 4+/5, to improve use of L arm and posture/position of shoulder joint 03-28-25 d/c goal not met, 4/5 Target Visit 8 Progress Not Met
--- NOTE | 2025-03-28 14:21 | PTOPDC ---
Assessment and note entered by Laine Simon, PT Assessment Status Discharge ICD-10 Condition Codes (PT) Pain in left shoulder M25.512 Onset November 2024 Subjective Information shoulder is better- pain is less and not as intense, able to reach arm up and lift easier; is scheduled for an MRI Apr 14 and then to see Dr Gary Apr 23; wants to be finished with therapy and keep up with exercises at home. Reported Pain Level Pain Score 5: Self Report Additional Pain Score Comments pain range in the past week 4-8/10; ache and hurts , sharp when it hits and move wrong; intermittent to elbow increase pain: turning wheel when driving; lift overhead decrease pain: rest, tylenol, heat have prescriptioon anti inflammatory 1x/day with sleeping, awaken 2-3x/night due to pain, reposition and return to sleep Assessment PT Clinical Summary Praneeth has received 7 PT sessions. With today's assessment, compared to the initial evaluation: pain from 3-9/10 to 4-8/10; continues to have radicular pain into L UE to elbow and awaken from sleeping 2-3x/night due to shoulder pain, repositions and returns to sleep; self assessment with Quick DASH functional score of 45 to 18% limitation in activity level; increase strength of L shoulder-scapular complex; education for HEP and posture completed. L shoulder AROM and Passive ROM: flexion 130/160' ; abduction 120/160'; IR- reach behind back, fingers to inferior edge of scapula/ 60'; ER- reach behind head, fingers to cervical spine/ 70'. Most pain increase with shoulder flexion and has a painful arc of motion with abduction. The goals were partially met. Discharge PT. He is to continue with his HEP and posture correction/ awareness. Plan of Care PT Services Indicated No
== END 2025-03-28 17:03 | disposition home or self-care (01) ==
LOC: ANHPT 13:30
PROVIDERS: PCP Family Medicine; Visit Provider Orthopaedic Surgery
DX: M25.512 Pain in left shoulder (principal)
CPT/HCPCS: 97014; 97110; 97140; 97161; 97530; G0283